=== PATIENT | female | born 1950 | race Caucasian/White ===

== ENCOUNTER 2019-10-25 12:30 | Emergency (ER) | payer MEDICARE, OTHER ==
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
[2019-10-25 12:52] VITALS: BP 155/72
== END 2019-10-25 13:09 | disposition home health service (06) ==
LOC: UCEAST 12:30
DX: R07.89 Other chest pain (principal); R06.00 Dyspnea, unspecified; R06.02 Shortness of breath
CPT/HCPCS: 99202; G0463

== ENCOUNTER 2019-10-25 13:27 | Inpatient (IN) | payer OTHER, MEDICARE ==
[2019-10-25] MEDS ORDERED: Aspirin 81 mg CHEW TAB* 81 MG TAB.CHEW PO ONE (13:46)
[2019-10-25] MEDS ORDERED: Nitroglycerin TAB 0.4 MG* 0.4 MG TAB SL ONE (13:46)
[2019-10-25 13:53] LABS: ABS Basophils 0.1 10^3/ul (0-0.2); ABS Lymphocytes 2.1 10^3/ul (1.0-4.8); ABS Monocytes 0.7 10^3/ul (0-0.8); ABS Neutrophils 6.2 10^3/ul (1.5-7.7); Eosinophil % 0.4 %; Hematocrit 40 % (35-47); Hemoglobin 13.1 g/dL (12.0-16.0); Lymphocyte % 23.2 %; Mean Corpuscular HGB Conc 33 g/dL (31-36); Mean Corpuscular Hemoglobin 27 pg (27-31); Mean Corpuscular Volume 82 fL (80-97); Mean Platelet Volume 8.2 fL (7.4-10.4); Platelet Count 296 10^3/uL (150-450); Red Blood Count 4.88 10^6 /uL (3.70-4.87); Red Cell Distribution Width 14 % (10-15); White Blood Count 9.2 10^3/uL (3.5-10.8)
[2019-10-25 13:57] LABS: INR 1.03 (0.82-1.09)
[2019-10-25 14:05] LABS: ALT 14 U/L (7-52); AST 27 U/L (13-39); Albumin 4.4 g/dL (3.2-5.2); Albumin/Globulin Ratio 1.5 (1-3); Alkaline Phosphatase 66 U/L (34-104); Anion Gap 6 mmol/L (2-11); BUN/Creatinine Ratio 21.6 (8-20); Blood Urea Nitrogen 16 mg/dL (6-24); CO2 Carbon Dioxide 27 mmol/L (22-32); Calcium 9.9 mg/dL (8.6-10.3); Chloride 104 mmol/L (101-111); EGFR African American 94.4 (>60); Globulin 2.9 g/dL (2-4); Glucose 109 mg/dL (70-100); Potassium 4.7 mmol/L (3.5-5.0); Sodium 137 mmol/L (135-145); Total Protein 7.3 g/dL (6.4-8.9)
[2019-10-25 14:08] LABS: Troponin I 1.65 ng/mL (<0.03)
[2019-10-25] MEDS ORDERED: Heparin DRIP 25,000 UNITS(*) 25,000 UNITS/500 ML BAG IV SCH (14:15)
[2019-10-25] MEDS ORDERED: Heparin VIAL(*) 5000 UNITS/ML VIAL (FIVE THOUSAND) IV PRN (14:17)
[2019-10-25] MEDS ORDERED: Ticagrelor* 90 MG TAB PO ONE (14:25)
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
[2019-10-25] MEDS ORDERED: Acetaminophen TAB* 325 MG PO PRN (16:06)
[2019-10-25] MEDS ORDERED: Nitroglycerin TAB 0.4 MG* 0.4 MG TAB SL PRN (16:26)
[2019-10-25 17:18] LABS: Troponin I 1.96 ng/mL (<0.03)
--- NOTE | 2019-10-25 18:14 | ECHO ---
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 History: No known cardiac history Conclusions Summary: - Left ventricle: The cavity size is normal. Wall thickness is normal. Systolic function is at the lower limits of normal. The estimated ejection fraction is 50-55%. - Regional wall motion abnormality: Moderate hypokinesis of the apical anterior myocardium; mild hypokinesis of the mid anterior, mid anterolateral, and apical lateral myocardium. - Right ventricle: The cavity size is normal. Systolic function is normal. - Left atrium: The atrium is normal in size. - Pulmonary arteries: Systolic pressure can not be accurately estimated. - No significant valvular abnormalites noted. Recommendations: None prior for comparison at time of interpretation. Study data: Transthoracic echocardiogram. Procedure: Transthoracic echocardiography was performed. Image quality was fair. Complete 2D, spectral Doppler, and color flow Doppler. Location: Emergency department. Patient status: Inpatient. Patient room number: ED-06. Rhythm: Bradycardia. Findings Left ventricle: The cavity size is normal. Wall thickness is normal. Systolic function is at the lower limits of normal. The estimated ejection fraction is 50-55%. Regional wall motion abnormalities: Moderate hypokinesis of the apical anterior myocardium; mild hypokinesis of the mid anterior, mid anterolateral, and apical lateral myocardium. Doppler parameters are consistent with abnormal left ventricular relaxation (grade 1 diastolic dysfunction). Right ventricle: The cavity size is normal. Systolic function is normal. Left atrium: The atrium is normal in size. Right atrium: The atrium is normal in size. Mitral valve: The leaflets are mildly thickened. There is no evidence of stenosis. There is trace regurgitation. Aortic valve: The valve is trileaflet. The leaflets are mildly thickened. There is no evidence of stenosis. There is mild regurgitation. Tricuspid valve: The leaflets are normal thickness. There is no evidence of stenosis. There is trace regurgitation. Pulmonic valve: The leaflets are normal thickness. There is no evidence of stenosis. There is trace regurgitation. Aorta: Aortic root: The aortic root is appears normal. Ascending aorta: The ascending aorta is appears normal. Aortic arch: The aortic arch is appears normal. Pericardium: There is no significant pericardial effusion. Pulmonary arteries: The main pulmonary artery is normal-sized. Systolic pressure can not be accurately estimated. Systemic veins: Inferior vena cava: The vessel is normal in size. There is (>= 50%) respiratory change in the IVC dimension. Measurements Left ventricle Value Ref Aortic valve Value Ref JOSEF, LAX 3.9 cm 3.8 - 5.2 Russell diam, ED 1.9 cm ---- ESD, LAX 2.5 cm 2.2 - 3.5 Peak v, S 1.49 m/sec ---- FS, LAX 36 % 27 - 45 VTI, S 32.9 cm ---- PW, ED, LAX 0.9 cm 0.6 - 0.9 Mean grad, S 4.0 mm Hg ---- FS 36 % 27 - 45 Peak grad, S 9.0 mm Hg ---- PW, ED 0.9 cm 0.6 - 0.9 LVOT/AV, VTI ratio 0.82 ---- E', lat russell, TDI (L) 6.3 cm/sec >=10.0 AR peak v 4.62 m/sec -- -- E/e', lat russell, 12 AR PHT 577 ms ---- TDI AR peak grad 85 mm Hg ---- E', med russell, TDI (L) 6.3 cm/sec >=7.0 E/e', med russell, 12 Mitral valve Value Ref TDI Peak E 0.74 m/sec ---- E', avg, TDI 6.3 cm/sec Peak A 0.96 m/sec ---- E/e', avg, TDI 12 <=14 Decel time 183 ms -- -- Peak grad, D 2.2 mm Hg ---- LVOT Value Ref Peak E/A ratio 0.8 ---- Peak theodora, S 1.03 m/sec VTI, S 27.0 cm Pulmonic valve Value Ref Mean grad, S 3 mm Hg Peak v, S 1.02 m/sec ---- Peak grad, S 4.0 mm Hg ---- Ventricular septum Value Ref IVS, ED 0.9 cm 0.6 - 0.9 Aortic root Value Ref Root diam 3.0 cm <3.8 Right ventricle Value Ref AW thickness, ED 0.5 cm 0.1 - 0.5 Ascending aorta Value Ref JOSEF, LAX 3.2 cm AAo AP diam, S 2.8 cm ---- JOSEF minor ax, A4C 3.0 cm 1.9 - 3.5 mid Aortic arch Value Ref Arch diam 1.8 cm ---- Left atrium Value Ref AP dim, ES 3.10 cm 2.70 - Decending aorta Value Ref 3.80 Taylor peak theodora 0.77 m/sec ---- ML dim, A4C 4.1 cm SI dim, A4C 5.0 cm Inferior vena cava Value Ref Vol/bsa, ES, 1-p 31 ml/m^2 11 - 40 Diam 1.2 cm ---- A4C Vol/bsa, ES, A/L 28 ml/m^2 16 - 34 Right atrium Value Ref SI dim, ES 5.1 cm 3.4 - 5.3 ML dim, ES, A4C 3.4 cm 2.6 - 4.4 Estimated RAP 3 mm Hg Legend: (L) and (H) marek values outside specified reference range. Prepared and electronically signed by Tay Back MD 10/25/2019 18:14
[2019-10-25] MEDS: Atorvastatin* 80 MG TAB PO SCH (18:37)
[2019-10-25] MEDS: Metoprolol Tartrate TAB* 25 MG PO SCH ×2 (18:37→22:05)
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
[2019-10-25 19:47] LABS: Troponin I 1.89 ng/mL (<0.03)
[2019-10-26 05:09] LABS: ABS Basophils 0.1 10^3/ul (0-0.2); ABS Eosinophils 0.1 10^3/ul (0-0.6); ABS Lymphocytes 2.6 10^3/ul (1.0-4.8); ABS Monocytes 0.7 10^3/ul (0-0.8); ABS Neutrophils 4.7 10^3/ul (1.5-7.7); Eosinophil % 1.3 %; Hematocrit 38 % (35-47); Hemoglobin 12.4 g/dL (12.0-16.0); Mean Corpuscular HGB Conc 33 g/dL (31-36); Mean Corpuscular Hemoglobin 27 pg (27-31); Mean Corpuscular Volume 82 fL (80-97); Mean Platelet Volume 8.4 fL (7.4-10.4); Nucleated Red Blood Cells % 0.1; Platelet Count 248 10^3/uL (150-450); Red Blood Count 4.57 10^6 /uL (3.70-4.87); Red Cell Distribution Width 14 % (10-15); White Blood Count 8.2 10^3/uL (3.5-10.8)
[2019-10-26 05:25] LABS: Cholesterol 240 mg/dL; HDL Cholesterol 63.4 mg/dL; LDL Cholesterol 166 mg/dL; Triglycerides 52 mg/dL
[2019-10-26] MEDS: Metoprolol Tartrate TAB* 25 MG PO SCH ×3 (05:46→22:52)
[2019-10-26] MEDS: Aspirin EC TAB* 81 MG TAB.EC PO SCH (08:22)
[2019-10-26] MEDS ORDERED: Heparin 2 UNITS/ML IVPREMIX* 2,000 ML IV ONE (08:53)
[2019-10-26] MEDS ORDERED: Lidocaine 1% INJ* 10 MG/ML 30 ML SDV ONE ×2 (08:53→09:09)
[2019-10-26] MEDS ORDERED: Iohexol 350 (CONTRAST) 200 ML MDV IV ONE (08:56)
[2019-10-26] MEDS ORDERED: Ticagrelor* 90 MG TAB PO SCH (09:00)
[2019-10-26] MEDS ORDERED: fentaNYL* 50 MCG/ML 2 ML VIAL (100 MCG VIAL) ONE (09:09)
[2019-10-26] MEDS ORDERED: Midazolam* 1 MG/ML 5 ML VIAL (5 MG) ONE (09:09)
[2019-10-26] MEDS ORDERED: Heparin(*) 1000 UNIT/ML 10 ML VIAL CATH LAB IV ONE (09:10)
[2019-10-26] MEDS ORDERED: nitroGLYCERIN DRIP* 25,000 MCG/250 ML BTL ONE (09:10)
[2019-10-26] MEDS ORDERED: VERAPAMIL 2.5 MG/ML 2 ML VIAL ** 5 mg/2 ml ONE (09:10)
[2019-10-26] MEDS ORDERED: NS 0.9% 1000 ML** 1,000 ML IV SCH (10:00)
[2019-10-26] MEDS: Lisinopril TAB* 5 MG PO SCH (12:36)
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
[2019-10-26] MEDS: Atorvastatin* 80 MG TAB PO SCH (17:54)
[2019-10-27] MEDS: Metoprolol Tartrate TAB* 25 MG PO SCH ×2 (06:06→14:11)
[2019-10-27 09:14] LABS: BUN/Creatinine Ratio 27.6 (8-20); Calcium 9.2 mg/dL (8.6-10.3); EGFR African American 91.6 (>60); EGFR Non-African American 75.7 (>60); Potassium 4.1 mmol/L (3.5-5.0)
[2019-10-27] MEDS: Aspirin EC TAB* 81 MG TAB.EC PO SCH (09:27)
[2019-10-27] MEDS: Lisinopril TAB* 5 MG PO SCH (09:27)
--- NOTE | 2019-10-27 10:27 | CATH ---
CC: Dr. Yumiko Lane; Dr. Tay Back * CARDIAC CATHETERIZATION REPORT: DATE OF PROCEDURE: 10/26/19 - ROOM #451 INDICATION FOR THE PROCEDURE: Asked by Dr. Back, the patient's primary excavation laborer in the hospital, to perform diagnostic coronary arteriography in light of presentation with chest discomfort with enzymes suggesting a non-STEMI with possibility of underlying coronary artery disease versus Takotsubo syndrome given clinical presentation. PROCEDURE: Coronary arteriography. CONSENT: The patient was interviewed and examined on the floor of the hospital where the risk and benefits were explained. She understood and wished to proceed. APPROACH USED: The right radial artery was assessed by the ultrasound prior to coming to the agriculture laborer and found to be acceptable for an approach, and as such, this was the approach utilized. PRECARDIAC CATHETERIZATION LABORATORY RESULTS: Hemoglobin and hematocrit of 12.4 and 38 with a platelet count of 248,000. BUN and creatinine of 16 and 0.7. Sodium 137, potassium 4.7, chloride 104, bicarb 27. Troponin was 0.7. EQUIPMENT UTILIZED: 1. Right radial artery sheath with a 5-Moldovan Glidesheath Slender. 2. Diagnostic guidewire was a 260 length Pineda curved guidewire. 3. Diagnostic coronary catheter was a 5-Moldovan TIG-4 curved catheter. 4. Closure device utilized was a regular length Vasc Band closure device. MEDICATIONS GIVEN DURING THE PROCEDURE: Included a radial artery cocktail of 300 mcg of nitroglycerin and 3 mg of verapamil. The patient was already on a heparin drip, which was maintained at the time of the cardiac catheterization. 1% lidocaine was used locally. 0.5 mg of Versed was given intravenously. DESCRIPTION OF PROCEDURE: The patient was brought to the cardiovascular laboratory where a formal timeout was performed. She was prepped and draped in a sterile fashion and under ultrasound guidance, the right radial artery was cannulated and the sheath was placed. Coronary arteriography was performed. Following this, the catheter and sheath were removed and hemostasis was obtained with local pressure. The reverse Barbeau was a B. The total contrast used was 30 cc of Omnipaque dye. The radiation exposure included 2.2 minutes of fluoro time. The air kerma radiation was 208 milligray. The DAP radiation was 1401 microgray/meter square. RESULTS: CORONARY ARTERIOGRAPHY: A. Left coronary artery. 1. Left main - widely patent. 2. Left anterior descending artery. The left anterior descending artery traversed to the apical region and minimally on to the distal inferior wall. There was no significant lesion seen throughout the course of the vessel. It supplied multiple diagonal branches, which were of small caliber without significant disease. 3. Circumflex artery - a non dominant vessel supplying a mid-to-low bifurcating obtuse marginal branch with no significant disease seen throughout the course. Of note, a trifurcation marginal branch was noted, which traversed to the posterior apical region and bifurcating in its mid segment. No significant disease was seen throughout the course of this vessel. B. Right coronary artery - a dominant vessel supplying the PDA and multiple posterior left ventricular branches as well as several acute marginal branches. There was no significant disease seen throughout the course of the vessel. OVERALL ASSESSMENT: No significant coronary artery disease noted. Given these findings in light of the clinical presentation, most likely Takotsubo syndrome would be the most likely diagnosis. This information was shared with Dr. Macedo, who is the acting primary excavation laborer in the hospital on the day of cardiac catheterization. Further management from a cardiac standpoint will be under his guidance and with the hospitalist guidance as well. [id number]/[facility] #: [id number] RADHA
[2019-10-27 12:11] VITALS: BP 111/55
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
== END 2019-10-27 14:50 | disposition home or self-care (01) | DRG 287 ==
LOC: ED 13:27 → ICU 16:00 → MEDTELE 10-26 13:15
PROVIDERS: ADMIT Internal Medicine; ATTEND Hospitalist
PROC: B211YZZ Fluoroscopy of Multiple Coronary Arteries using Other Contrast (ICD-10-PCS; principal; 2019-10-26 09:00)
DX: I51.81 Takotsubo syndrome (principal); R00.2 Palpitations; E78.5 Hyperlipidemia, unspecified; Z82.49 Family history of ischemic heart disease and other diseases of the circulatory system; Z83.79 Family history of other diseases of the digestive system
CPT/HCPCS: 36415; 71046; 80048; 80053; 80061; 83036; 84484; 85025; 85347; 85610; 85730; 87641; 93005; 93306; 93454; 99156; 99157; 99285; A9270-GY; C1887; J1644; J2250; J3010

== ENCOUNTER 2019-11-18 12:05 | Emergency (ER) | payer MEDICARE, OTHER ==
--- NOTE | 2019-11-18 12:33 | ED ---
Complex/Multi-Sys Presentation - HPI Summary HPI Summary: The patient is a 69 y/o female presenting to [facility] with chief complaint of numbness in the second finger of the left hand onset an hour ago and resolving after about 30 minutes. She reports that she was out at the grocery store when the distal end of the second digit on the left hand became numb and white. She attempted to relieve the sensation by sitting with her hand between her and the heated seat of her car to no relief. On her way here, her symptoms resolved as the finger is no longer numb and the color is now pink again as usual. She denies any other symptoms including fevers, chills, chest pain, palpitations, or dizziness. She notes that she was here about three weeks ago concerning a cardiac event for which she was admitted for a few days with Takotsubo syndrome ; she had a cardiac catheterization performed by Dr. Fernandez negative for CAD, and she has followed with her PCP and Dr. Phillips outpatient since then. She was placed on Lisinopril, Metoprolol, Atorvastatin, and Aspirin, which she is compliant with. PMHx: HTN, HLD. Nonsmoker, weekly EtOH, no substance use. Medications reviewed. Allergies noted. - History Of Current Complaint Chief Complaint: EDGeneral Time Seen by Provider: 11/18/19 12:15 Hx Obtained From: Patient Onset/Duration: Lasting Minutes, Resolved Timing: Constant, Minutes Severity Currently: None Severity Initially: Moderate Aggravating Factor(s): nothing Alleviating Factor(s): spontaneous resolution Associated Signs And Symptoms: Positive: Other - numbness and delayed color return to distal second finger on left hand; Negative: chills, chest pain. Negative: Dizziness, Palpitations, Fever Related History: Recent Hospitalization - 10/25/2019 cardiac workup for Takotsubo syndrome - Allergies/Home Medications Allergies/Adverse Reactions: Allergies Allergy/AdvReac Type Severity Reaction Status Date / Time No Known Allergies Allergy Verified 11/18/19 12:10 PMH/Surg Hx/FS Hx/Imm Hx Endocrine/Hematology History: Denies: Hx Diabetes Cardiovascular History: Reports: Hx Angina, Hx Hypercholesterolemia, Hx Hypertension Denies: Hx Pacemaker/ICD, Hx Peripheral Vascular Disease Musculoskeletal History: Denies: Hx Rheumatoid Arthritis, Hx Osteoporosis Sensory History: Reports: Hx Contacts or Glasses Denies: Hx Legally Blind, Hx Deafness, Hx Hearing Aid Opthamlomology History: Reports: Hx Contacts or Glasses Denies: Hx Legally Blind Neurological History: Denies: Hx Seizures, Hx Transient Ischemic Attacks (TIA) Psychiatric History: Reports: Hx Anxiety - Surgical History Surgical History: Yes Surgery Procedure, Year, and Place: appendectomy. tubal liagtion Infectious Disease History: No Infectious Disease History: Denies: Hx Clostridium Difficile, Hx Hepatitis, Hx Human Immunodeficiency Virus (HIV), Hx of Known/Suspected MRSA, Hx Shingles, Hx Tuberculosis, Traveled Outside the [place] in Last 30 Days - Family History Known Family History: Positive: Cardiac Disease - [place], Hypertension - Social History Alcohol Use: Weekly Hx Substance Use: No Substance Use Type: Reports: None Hx Tobacco Use: No Smoking Status (MU): Never Smoked Tobacco Have You Smoked in the Last Year: No Review of Systems Negative: Fever, Chills Negative: Palpitations, Chest Pain Neurological: Other - Negative: dizziness Positive: Numbness - second finger left hand with delayed color return All Other Systems Reviewed And Are Negative: Yes Physical Exam - Summary Physical Exam Summary: Appearance: The patient is well-nourished in no acute distress and in no acute pain. Skin: The skin is warm and dry, and skin color reflects adequate perfusion. HEENT: The head is normocephalic and atraumatic. The pupils are equal and reactive. The conjunctivae are clear and without drainage. Nares are patent and without drainage. Mouth reveals moist mucous membranes, and the throat is without erythema and exudate. The external ears are intact. The ear canals are patent and without drainage. The tympanic membranes are intact. Neck: The neck is supple with full range of motion and non-tender. There are no carotid bruits. There is no neck vein distension. Respiratory: Chest is non-tender. Lungs are clear to auscultation and breath sounds are symmetrical and equal. Cardiovascular: Heart is regular rate and rhythm. There is no murmur or rub auscultated. There is no peripheral edema and pulses are symmetrical and equal. Abdomen: The abdomen is soft and non-tender. There are normal bowel sounds heard in all four quadrants and there is no organomegaly palpated. Musculoskeletal: There is no back tenderness noted. Extremities are non-tender with full range of motion. There is good capillary refill. There is no peripheral edema or calf tenderness elicited. Neurological: Patient is alert and oriented to person, place and time. The patient has symmetrical motor strength in all four extremities. Cranial nerves are grossly intact. Deep tendon reflexes are symmetrical and equal in all four extremities. Psychiatric: The patient has an appropriate affect and does not exhibit any anxiety or depression. Triage Information Reviewed: Yes Vital Signs On Initial Exam: Initial Vitals Temp Pulse Resp BP Pulse Ox 97.3 F 51 16 115/88 97 11/18/19 12:07 11/18/19 12:07 11/18/19 12:07 11/18/19 12:07 11/18/19 12:07 Vital Signs Reviewed: Yes Procedures - Sedation Patient Received Moderate/Deep Sedation with Procedure: No Diagnostics - Vital Signs Vital Signs Temp Pulse Resp BP Pulse Ox 11/18/19 12:07 97.3 F 51 16 115/88 97 - Laboratory Result Diagrams: 11/18/19 13:53 11/18/19 13:53 Lab Statement: Any lab studies that have been ordered have been reviewed, and results considered in the medical decision making process. - EKG 1211 Cardiac Rate: Bradycardia - 51 BPM EKG Rhythm: Sinus Bradycardia Summary of EKG Findings: An EKG at 1211 reveals sinus bradycardia at 51 BPM, normal ST, no ectopy, no STEMI. ED physician has reviewed and interpreted this EKG. Re-Evaluation - Re-Evaluation First Eval Re-Evaluation Time: 15:50 Comment: We discussed results and plan for discharge. Complex Multi-Symp Course/Dx Course Of Treatment: Reflects her on the monitor for quite some time and there was no dysrhythmia. Her labs were unremarkable. I think this likely represents some vasospasm. A remote possibility is an intracardiac thrombus with a small satellite thrown. I spoke with Dr. Macedo about an echocardiogram and he recommended they follow her in the office and she increase her aspirin from 81 mg a day to full strength a day. She has an appointment with Dr. Sales in December I encouraged her to follow-up with our rocket assembly operator next week if she couldn't see that office. - Diagnoses Provider Diagnoses: Vasospasm - Physician Notifications Discussed Care Of Patient With: Keira Macedo - cardiology Instructed by Provider To: Other - I discussed the patients case with Dr. Macedo, who recommends increasing the patients ASA to 324mg instead of 81mg. He will follow up with the patient. Discharge ED - Sign-Out/Discharge Documenting (check all that apply): Patient Departure - Patient will be discharged home. - Discharge Plan Condition: Stable Disposition: HOME Patient Education Materials: Paresthesia (ED) Referrals: Yumiko Lane MD [Primary Care Provider] - 3 Days Keira Macedo MD [Medical Doctor] - 1 Week Additional Instructions: Please increase your dose of 81mg Aspirin to 324mg Aspirin. Follow up with Dr. Macedo from cardiology next week. Follow up with your primary care provider in 2-3 days. Return to the emergency department for any new or worsening symptoms. - Billing Disposition and Condition Condition: STABLE Disposition: Home - Attestation Statements Document Initiated by Kurt: Yes Documenting Scribe: Carri Yanes Provider For Whom Kurt is Documenting (Include Credential): Dr. Andrey Tan MD Scribe Attestation: Carri Vargas scribed for Dr. Andrey Tan MD on 11/18/19 at 1819. Scribe Documentation Reviewed: Yes Provider Attestation: The documentation as recorded by the Carri bautista accurately reflects the service I personally performed and the decisions made by me, Dr. Andrey Tan MD Status of Scribjonna Document: Viewed
[2019-11-18 14:07] LABS: ABS Eosinophils 0.1 10^3/ul (0-0.6); ABS Lymphocytes 1.7 10^3/ul (1.0-4.8); ABS Monocytes 0.4 10^3/ul (0-0.8); ABS Neutrophils 5.1 10^3/ul (1.5-7.7); Eosinophil % 1.7 %; Hematocrit 40 % (35-47); Hemoglobin 13.2 g/dL (12.0-16.0); Lymphocyte % 22.6 %; Mean Corpuscular HGB Conc 33 g/dL (31-36); Mean Corpuscular Hemoglobin 27 pg (27-31); Mean Corpuscular Volume 83 fL (80-97); Nucleated Red Blood Cells % 0.1; Platelet Count 219 10^3/uL (150-450); Red Blood Count 4.85 10^6 /uL (3.70-4.87); Red Cell Distribution Width 15 % (10-15); White Blood Count 7.4 10^3/uL (3.5-10.8)
[2019-11-18 14:12] LABS: INR 1.09 (0.82-1.09)
[2019-11-18 14:24] LABS: Albumin 4.3 g/dL (3.2-5.2); Albumin/Globulin Ratio 1.7 (1-3); BUN/Creatinine Ratio 25.6 (8-20); Calcium 9.1 mg/dL (8.6-10.3); EGFR African American 88.9 (>60); EGFR Non-African American 73.4 (>60); Globulin 2.6 g/dL (2-4); Magnesium 2.2 mg/dL (1.9-2.7); Potassium 4.5 mmol/L (3.5-5.0); Total Bilirubin 0.6 mg/dL (0.2-1.0); Total Protein 6.9 g/dL (6.4-8.9)
[2019-11-18 14:25] LABS: Troponin I 0.01 ng/mL (<0.03)
[2019-11-18 14:46] LABS: TSH (Thyroid Stimulating Horm) 1.5 mcIU/mL (0.34-5.60)
[2019-11-18 16:15] VITALS: BP 155/61
== END 2019-11-18 16:13 | disposition home or self-care (01) ==
LOC: ED 12:05
DX: I73.9 Peripheral vascular disease, unspecified (principal); E78.00 Pure hypercholesterolemia, unspecified; I10 Essential (primary) hypertension; E78.5 Hyperlipidemia, unspecified; F41.9 Anxiety disorder, unspecified; Z79.82 Long term (current) use of aspirin; Z79.899 Other long term (current) drug therapy
CPT/HCPCS: 36415; 80053; 83605; 83735; 84443; 84484; 85025; 85610; 93005; 99283